=== PATIENT | male | born 1975 | race African-American/Black ===

== ENCOUNTER 2019-12-10 10:27 | Emergency (ER) | payer OTHER ==
[~2019-12-10] VITALS: Ht 182.9 cm; Wt 90.7 kg
[2019-12-10 10:37] VITALS: BP 144/83
--- NOTE | 2019-12-10 11:00 | NUR ---
COVID SWAB OBTAINED AND SENT TO LAB.
--- NOTE | 2019-12-10 11:05 | NUR ---
Patient discharged to home in stable condition. Written and verbal after care instructions given. Patient verbalizes understanding of instruction.
--- NOTE | 2019-12-11 01:57 | NUR ---
LAB CALLED WITH NEGATIVE COVID TEST RESULT
== END 2019-12-10 11:06 | disposition home or self-care (01) ==
LOC: ER 10:32
DX: Z03.818 Encounter for observation for suspected exposure to other biological agents ruled out (principal)
CPT/HCPCS: 99283; C9803; U0003